=== PATIENT | female | born 1960 | race Caucasian/White ===

== ENCOUNTER 2024-07-01 08:02 | Day surgery (SDC) | payer BC ==
[2024-06-30 10:55] VITALS: BMI 28.3
[2024-07-01] MEDS ORDERED: PROPOFOL 40 ML ONE (09:15)
[2024-07-01] MEDS ORDERED: Ondansetron PF 4 MG/2 ML Vial ONE (09:15)
[2024-07-01] MEDS ORDERED: fentaNYL PF 100 MCG/2 ML SYRINGE ONE (09:15)
[2024-07-01] MEDS ORDERED: Lidocaine 1% PF 5 ML VIAL ONE (09:15)
[2024-07-01] MEDS ORDERED: Dexamethasone 4 mg/ml Vial ONE (09:15)
[2024-07-01 09:24] LABS: Hematocrit 37.9 % (36.0-47.0); Hemoglobin 12.4 g/dL (12.0-16.0); Mean Corpuscular HGB CONC 32.7 g/dL (32.0-36.0); Mean Corpuscular Hemoglobin 30.6 pg (27.0-31.0); Mean Corpuscular Volume 93.6 fL (78.0-98.0); Mean Platelet Volume 9.6 fL (7.4-10.4); Platelet Count 284 10x3/uL (130-400); RBC Distribution Width 14.7 % (11.5-14.5); Red Blood Cell (RBC) Count 4.05 mill/uL (4.20-5.40)
[2024-07-01 09:36] LABS: Anion Gap 14 mmol/L (10-20); BUN (Urea Nitrogen) 14 mg/dL (9.8-20.1); Calc. Creatinine Clearance 73 mL/min (70-130); Calcium 9.5 mg/dL (7.8-10.44); Carbon Dioxide 24 mmol/L (23-31); Chloride 107 mmol/L (98-107); Estimated GFR 78; Glucose 104 mg/dL (80-115); Sodium 141 mmol/L (136-145)
[2024-07-01] MEDS ORDERED: EPINEPHrine 1 MG/ML VIAL ONE (10:30)
[2024-07-01] MEDS ORDERED: Lidocaine 1% (PF) 30 ML VIAL ONE (10:30)
[2024-07-01] MEDS ORDERED: Propofol 1,000 MG/100 ML VIAL IV ONE (11:04)
[2024-07-01] MEDS ORDERED: Midazolam HCl 2 mg/2 ml Vial ONE (11:04)
[2024-07-01] MEDS ORDERED: Glycopyrrolate 0.2 MG/ML 5 ML SYRINGE ONE (11:20)
[2024-07-01] MEDS ORDERED: PHENYLEPHRINE-NS 100 MCG/ML 10 ML SYRINGE ONE (11:20)
[2024-07-01] MEDS ORDERED: Bupivacaine 0.25% HCL 30 ML VIAL ONE ×2 (11:22→15:17)
== END 2024-07-01 14:05 | disposition home or self-care (01) ==
LOC: SDC 08:02
PROVIDERS: ATTEND Specialist
PROC: 0HX1XZZ Transfer Face Skin, External Approach (ICD-10-PCS; principal; 2024-07-01)
DX: J34.89 Other specified disorders of nose and nasal sinuses (principal); J34.2 Deviated nasal septum; L98.8 Other specified disorders of the skin and subcutaneous tissue; I10 Essential (primary) hypertension; E78.00 Pure hypercholesterolemia, unspecified; F41.9 Anxiety disorder, unspecified; Z79.899 Other long term (current) drug therapy
CPT/HCPCS: 80048; 85027; 93005; 93010; J0171; J0665; J1100; J2001; J2250; J2405; J2704